=== PATIENT | male | born 1975 | race Caucasian/White ===

== ENCOUNTER 2018-11-30 19:40 | Emergency (ER) | payer OTHER ==
[~2018-11-30] VITALS: Ht 167.6 cm; Wt 79.4 kg
[2018-11-30 21:17] LABS: Alanine Aminotransfer (ALT/SGP 34 U/L (12-78); Albumin, Blood 4.1 g/dL (3.4-5.0); Albumin/Globulin Ratio 1.1 (0.8-1.8); Alk Phos 79 U/L (50-136); Anion Gap 8 mmol/L (6-16); Aspartate Aminotrans (AST/SGOT 38 U/L (12-37); Bilirubin, Total 2.6 mg/dL (0.1-1.0); Blood Urea Nitrogen 18 mg/dL (8-24); Bun/Creatinine Ratio 22.6 (12.0-20.0); CO2, Blood 25 mmol/L (21-32); CPK Creatine Kinase 663 U/L (39-308); Calcium, Blood 9.5 mg/dL (8.5-10.1); Chloride, Blood 110 mmol/L (98-108); Globulin, Blood 3.7 g/dL (2.2-4.0); Glomerular Filtration Rate >60 (60-); Glucose, Blood 85 mg/dL (70-99); Potassium, Blood 3.9 mmol/L (3.5-5.5); Sodium, Blood 143 mmol/L (136-145); Total Protein, Blood 7.8 g/dL (6.4-8.2)
[2018-11-30 21:22] LABS: Acetaminophen, Random <2.0 ug/mL (10.0-30.0)
[2018-11-30 21:38] LABS: Creatine Kinase MB 9.7 ng/mL (0.0-3.6); Creatine Kinase MB Index 1.5 (0.0-4.0)
== END 2018-11-30 22:35 | disposition home or self-care (01) ==
LOC: ER 19:40
PROVIDERS: Emergency Medicine
DX: F15.10 Other stimulant abuse, uncomplicated (principal); E80.6 Other disorders of bilirubin metabolism; F17.200 Nicotine dependence, unspecified, uncomplicated
CPT/HCPCS: 36415; 80053; 82550; 82553; 99284; G0480; J7030

== ENCOUNTER 2019-04-21 00:06 | Emergency (ER) | payer OTHER ==
[~2019-04-21] VITALS: Ht 185.4 cm; Wt 72.6 kg
[2019-05-02] MEDS ORDERED: CEFP200 PO (05:26)
== END 2019-04-21 03:32 | disposition home or self-care (01) ==
LOC: ER 00:06
DX: M79.671 Pain in right foot (principal); M79.672 Pain in left foot; G89.29 Other chronic pain; F15.10 Other stimulant abuse, uncomplicated; F17.200 Nicotine dependence, unspecified, uncomplicated
CPT/HCPCS: 99283; A9270-GY

== ENCOUNTER 2019-07-05 12:27 | Emergency (ER) | payer OTHER ==
[~2019-07-05] VITALS: Ht 195.6 cm; Wt 81.7 kg
[~2019-07-05 12:27] MED LIST: CEFP200 PO
[2019-07-05 15:00] LABS: BASOPHILS ABSOLUTE AUTO 0.24 K/mm3 (0.00-0.23); BASOPHILS PERCENT AUTO 1 % (0-2); EOSINOPHILS ABSOLUTE AUTO 4.35 K/mm3 (0.00-0.68); EOSINOPHILS PERCENT AUTO 26 % (0-6); Hematocrit 39.7 % (37.0-53.0); Hemoglobin 13.2 g/dL (13.5-17.5); IMMATURE GRAN ABSOLUTE AUTO 0.09 K/mm3 (0.00-0.10); IMMATURE GRAN PERCENT AUTO 1 % (0-1); LYMPHOCYTES ABSOLUTE AUTO 2.89 K/mm3 (0.84-5.20); LYMPHOCYTES PERCENT AUTO 17 % (21-46); MONOCYTES ABSOLUTE AUTO 1.47 K/mm3 (0.16-1.47); MONOCYTES PERCENT AUTO 9 % (4-13); Mean Corpuscular HGB 31.7 pg (26.0-34.0); Mean Corpuscular HGB Conc 33.2 g/dL (31.5-36.5); Mean Corpuscular Volume 95 fL (80-100); Mean Platelet Volume 9.6 fL (9.1-12.4); NEUTROPHILS ABSOLUTE AUTO 7.92 K/mm3 (1.96-9.15); NEUTROPHILS PERCENT AUTO 47 % (41-73); Platelet Count 333 K/mm3 (150-400); RDW Coefficient Variation 13.3 % (11.7-14.2); RDW Standard Deviation 47.4 fL (35.1-46.3); Red Blood Cell Count 4.16 M/mm3 (4.30-5.90); White Blood Cell Count 16.96 K/mm3 (4.00-11.30)
[2019-07-05] MEDS ORDERED: GABA300 PO (15:11)
[2019-07-05] MEDS ORDERED: NABU750 PO (15:12)
[2019-07-05 15:27] LABS: Alanine Aminotransfer (ALT/SGP 28 U/L (12-78); Albumin, Blood 3.6 g/dL (3.4-5.0); Albumin/Globulin Ratio 0.9 (0.8-1.8); Alk Phos 83 U/L (50-136); Anion Gap 4 mmol/L (6-16); Aspartate Aminotrans (AST/SGOT 17 U/L (12-37); Bilirubin, Total 0.8 mg/dL (0.1-1.0); Blood Urea Nitrogen 20 mg/dL (8-24); Bun/Creatinine Ratio 28.2 (12.0-20.0); CO2, Blood 29 mmol/L (21-32); Calcium, Blood 9.1 mg/dL (8.5-10.1); Chloride, Blood 105 mmol/L (98-108); Creatinine, Blood 0.71 mg/dL (0.60-1.20); Globulin, Blood 4.1 g/dL (2.2-4.0); Glomerular Filtration Rate >60 (60-); Glucose, Blood 79 mg/dL (70-99); Potassium, Blood 3.7 mmol/L (3.5-5.5); Sodium, Blood 138 mmol/L (136-145); Total Protein, Blood 7.7 g/dL (6.4-8.2)
[2019-07-05] MEDS ORDERED: CEPH500 PO (16:27)
[2019-07-05] MEDS ORDERED: Zithromax250 MG PO (16:27)
== END 2019-07-05 16:41 | disposition home or self-care (01) ==
LOC: ER 12:27
PROVIDERS: Emergency Medicine
DX: J18.9 Pneumonia, unspecified organism (principal); F17.210 Nicotine dependence, cigarettes, uncomplicated
CPT/HCPCS: 36415; 71046; 80053; 83605; 85025; 96365; 99284-25; J0696

== ENCOUNTER 2020-10-23 18:34 | Emergency (ER) | payer OTHER ==
[~2020-10-23] VITALS: Ht 195.6 cm; Wt 81.2 kg
[~2020-10-23 18:34] MED LIST changes: +CEPH500 PO; +GABA300 PO; +NABU750 PO; +Zithromax250 MG PO
== END 2020-10-23 20:23 | disposition left against medical advice (07) ==
LOC: ER 18:34
DX: M79.672 Pain in left foot (principal); Z53.21 Procedure and treatment not carried out due to patient leaving prior to being seen by health care provider
CPT/HCPCS: 73610; 99283-25

== ENCOUNTER 2021-01-16 11:00 | Inpatient (IN) | payer OTHER ==
[~2021-01-16] VITALS: Ht 193 cm; Wt 72.9 kg
[2021-01-16 11:51] LABS: BASOPHILS ABSOLUTE AUTO 0.09 K/mm3 (0.00-0.23); BASOPHILS PERCENT AUTO 1 % (0-2); EOSINOPHILS ABSOLUTE AUTO 0.15 K/mm3 (0.00-0.68); EOSINOPHILS PERCENT AUTO 1 % (0-6); Hemoglobin 11.7 g/dL (13.5-17.5); IMMATURE GRAN ABSOLUTE AUTO 0.19 K/mm3 (0.00-0.10); IMMATURE GRAN PERCENT AUTO 1 % (0-1); LYMPHOCYTES ABSOLUTE AUTO 0.99 K/mm3 (0.84-5.20); LYMPHOCYTES PERCENT AUTO 6 % (21-46); MONOCYTES ABSOLUTE AUTO 1.65 K/mm3 (0.16-1.47); MONOCYTES PERCENT AUTO 10 % (4-13); Mean Corpuscular HGB 30.8 pg (26.0-34.0); Mean Corpuscular HGB Conc 33.4 g/dL (31.5-36.5); Mean Corpuscular Volume 92 fL (80-100); Mean Platelet Volume 9.8 fL (9.1-12.4); NEUTROPHILS ABSOLUTE AUTO 13.71 K/mm3 (1.96-9.15); NEUTROPHILS PERCENT AUTO 82 % (41-73); Platelet Count 267 K/mm3 (150-400); RDW Coefficient Variation 13.5 % (11.7-14.2); White Blood Cell Count 16.78 K/mm3 (4.00-11.30)
[2021-01-16 12:18] LABS: Alanine Aminotransfer (ALT/SGP 27 U/L (12-78); Albumin, Blood 2.9 g/dL (3.4-5.0); Albumin/Globulin Ratio 0.6 (0.8-1.8); Alk Phos 102 U/L (50-136); Anion Gap 6 mmol/L (6-16); Aspartate Aminotrans (AST/SGOT 15 U/L (12-37); Blood Urea Nitrogen 18 mg/dL (8-24); Bun/Creatinine Ratio 22.2 (12.0-20.0); CO2, Blood 28 mmol/L (21-32); Calcium, Blood 9.5 mg/dL (8.5-10.1); Chloride, Blood 102 mmol/L (98-108); Creatinine, Blood 0.81 mg/dL (0.60-1.20); Globulin, Blood 4.9 g/dL (2.2-4.0); Glomerular Filtration Rate >60 (60-); Glucose, Blood 113 mg/dL (70-99); Potassium, Blood 3.8 mmol/L (3.5-5.5); Sodium, Blood 136 mmol/L (136-145); Total Protein, Blood 7.8 g/dL (6.4-8.2); Troponin I 0.054 ng/mL (0.000-0.040)
--- NOTE | 2021-01-16 17:35 | NUR ---
PATIENT IS ALERT AND ORIENTED AND COOPERATIVE WITH CARE. ON RA. PATIENT CAN USE THE URINAL INDEPENDENTLY. AN ECHO WAS PERFORMED THIS AFTERNOON. NS RUNNING AT 125 ML/HR. NO C/O CP AT THIS TIME. WILL CONTINUE TO MONITOR
[2021-01-16 19:15] LABS: Adenovirus Not Detected (NOT DETECT); Bordetella pertussis Not Detected (NOT DETECT); Chlamydophila pneumoniae Not Detected (NOT DETECT); Coronavirus 229E Not Detected (NOT DETECT); Coronavirus HKU1 Not Detected (NOT DETECT); Coronavirus NL63 Not Detected (NOT DETECT); Coronavirus OC43 Not Detected (NOT DETECT); Human Metapneumovirus Not Detected (NOT DETECT); Human Rhinovirus/Enterovirus Not Detected (NOT DETECT); Influenza A/2009-H1 Not Detected (NOT DETECT); Influenza A/H1 Not Detected (NOT DETECT); Influenza A/H3 Not Detected (NOT DETECT); Influenza B Not Detected (NOT DETECT); Mycoplasma pneumoniae Not Detected (NOT DETECT); Parainfluenza Virus 1 Not Detected (NOT DETECT); Parainfluenza Virus 2 Not Detected (NOT DETECT); Parainfluenza Virus 3 Not Detected (NOT DETECT); Parainfluenza Virus 4 Not Detected (NOT DETECT); Respiratory Syncytial Virus Not Detected (NOT DETECT); SARS-Cov-2 (COVID-19), BioFire Not Detected (NOT DETECT)
[2021-01-17 05:22] LABS: Hematocrit 29.1 % (37.0-53.0); Hemoglobin 9.7 g/dL (13.5-17.5); Mean Corpuscular HGB 31.2 pg (26.0-34.0); Mean Corpuscular HGB Conc 33.3 g/dL (31.5-36.5); Mean Corpuscular Volume 94 fL (80-100); Mean Platelet Volume 10.4 fL (9.1-12.4); Platelet Count 241 K/mm3 (150-400); RDW Coefficient Variation 13.8 % (11.7-14.2); RDW Standard Deviation 47.5 fL (35.1-46.3); Red Blood Cell Count 3.11 M/mm3 (4.30-5.90)
[2021-01-17 05:51] LABS: BAND PERCENT MAN 2 % (0-8); BASOPHILS PERCENT MAN 0 % (0-2); EOSINOPHILS ABSOLUTE MAN 0.31 K/mm3 (0.00-0.68); EOSINOPHILS PERCENT MAN 3 % (0-6); LYMPHOCYTES ABSOLUTE MAN 1.45 K/mm3 (0.84-5.20); LYMPHOCYTES PERCENT MAN 14 % (21-46); MONOCYTES ABSOLUTE MAN 1.04 K/mm3 (0.16-1.47); MONOCYTES PERCENT MAN 10 % (4-13); NEUTROPHILS ABSOLUTE MAN 7.59 K/mm3 (1.96-9.15); SEG NEUTROPHILS PERCENT MAN 71 % (41-73); TOTAL CELLS COUNTED 100
[2021-01-17 06:06] LABS: Alanine Aminotransfer (ALT/SGP 31 U/L (12-78); Albumin, Blood 2.2 g/dL (3.4-5.0); Albumin/Globulin Ratio 0.5 (0.8-1.8); Alk Phos 83 U/L (50-136); Anion Gap 7 mmol/L (6-16); Aspartate Aminotrans (AST/SGOT 27 U/L (12-37); Bilirubin, Total 0.4 mg/dL (0.1-1.0); Blood Urea Nitrogen 15 mg/dL (8-24); Bun/Creatinine Ratio 20.8 (12.0-20.0); CO2, Blood 24 mmol/L (21-32); Calcium, Blood 8.3 mg/dL (8.5-10.1); Chloride, Blood 106 mmol/L (98-108); Creatinine, Blood 0.72 mg/dL (0.60-1.20); Globulin, Blood 4.1 g/dL (2.2-4.0); Glomerular Filtration Rate >60 (60-); Glucose, Blood 101 mg/dL (70-99); Magnesium, Blood 2.5 mg/dL (1.6-2.4); Potassium, Blood 3.7 mmol/L (3.5-5.5); Sodium, Blood 137 mmol/L (136-145); Total Protein, Blood 6.3 g/dL (6.4-8.2)
--- NOTE | 2021-01-17 06:28 | NUR ---
PATIENT IS ALERT AND ORIENTED X4. DENIES SOB OR ANY DISTRESS. PATIENT TROPONIN LEVELS REPORTED BY LAB INCREASED FROM 0.093 TO 0.510. MD ANTHONY NOTIFIED WITH NEW ORDER FOR ASPIRIN 81 PO AND ECHO DONE THIS MORNING.
--- NOTE | 2021-01-17 07:07 | NUR ---
PATIENT IS ALET AND ORIENTED. TROPONIN LEVEL THIS MORNING DOUBLED TO 1.12. PREVIOUS 0.51 DR ANTHONY AWARE, SOME NEW ORDERS IN PLACE.
--- NOTE | 2021-01-17 17:49 | NUR ---
SHIFT SUMMARY PATIENT IS ALERT AND ORIENTATED X4. PATIENTS TRIPONINS HAVE BEEN TRENDING UPWARDS TO 1.650. CARDIOLOGY HAS BEEN CONSULTED DR OCONNELL HAS BEEN NOTIFIED. PATIENT HAS BEEN PLACED ON HEPARIN DRIP AND PHARMACY IS MANAGING DOSING. PATIENT HAS BEEN HAVING INTERMEITTENT PAIN WITH MOVEMENT. PATIENT HAS NOT BEEN SHORT OF BREATH. VITAL SIGNS REVIEWED. WILL CONTINUE TO MONITOR UNTIL SHIFT CHANGE.
[2021-01-18 06:06] LABS: Hematocrit 29.6 % (37.0-53.0); Platelet Count 287 K/mm3 (150-400)
--- NOTE | 2021-01-18 06:44 | NUR ---
PATIENT IS ALERT AND ORIENTATED. PATIENT CONTINUES ON HEPARIN DRIP RUNNING. PATIENT RECEIVED A DOSE HEPARIN BOLUS ADJUSTMENT. PATIENT DENIES SOB, COMPLAIN OF PAIN TO HIS RIGHT UPPER QUANDRANT, PATIENT RECEIVED ULRAM 50MG EFFECT STILL PENDING. PATIENT IS INDEPENDENT WITH URINAL, EMPTIED 2025CC OF URINE LAST NIGHT. WILL CONTINUE TO MONITOR PATIENT.
--- NOTE | 2021-01-18 19:33 | NUR ---
Alert and oriented x3 , able to make needs known. C/O RIGHT UPPPER shoulder , tramadol was given and it was effective. One person assist with ALDS. USED urinal at bedside. Heparin DC this AM . Continue on ABO therapy for PNA, no adverse effect noted. Troponin was 1.35 this morning , trended down , market development manager and DR CAMPBELL notified. vital signs are stable. continue to monitor.
--- NOTE | 2021-01-19 04:37 | NUR ---
END OF SHIFT SUMMARY PT HEART SAID TO BE LOW PER TELE, PATIENT WAS DEEP ASLEEP IN NO OBVIOUS DISTRESS, CO CP NOTED. BUT JUST THIS MORNING WAS HURTING AND WAS GIVEN THE PAIN MED PER EMAR. WILL CONTINUE TO MONITOR PATIENT.
[2021-01-19 05:17] LABS: Hematocrit 29.1 % (37.0-53.0); Hemoglobin 9.7 g/dL (13.5-17.5); Mean Corpuscular HGB Conc 33.3 g/dL (31.5-36.5); Mean Corpuscular Volume 93 fL (80-100); Mean Platelet Volume 10.1 fL (9.1-12.4); Platelet Count 330 K/mm3 (150-400); RDW Standard Deviation 47.8 fL (35.1-46.3); Red Blood Cell Count 3.13 M/mm3 (4.30-5.90); White Blood Cell Count 12.66 K/mm3 (4.00-11.30)
[2021-01-19 05:41] LABS: Anion Gap 4 mmol/L (6-16); Blood Urea Nitrogen 9 mg/dL (8-24); Bun/Creatinine Ratio 15.4 (12.0-20.0); CO2, Blood 30 mmol/L (21-32); Calcium, Blood 9.4 mg/dL (8.5-10.1); Chloride, Blood 105 mmol/L (98-108); Creatinine, Blood 0.58 mg/dL (0.60-1.20); Ferritin, Serum 265 ng/mL (26-388); Glomerular Filtration Rate >60 (60-); Glucose, Blood 110 mg/dL (70-99); Iron Serum 29 ug/dL (65-175); Percent Saturation 11.9 % (20.0-50.0); Sodium, Blood 139 mmol/L (136-145); Total Iron Binding Capacity 244 ug/dL (250-450)
[2021-01-19] MEDS ORDERED: ASPI81CH PO (15:31)
[2021-01-19] MEDS ORDERED: DOXY100 PO (15:31)
[2021-01-19] MEDS ORDERED: TRAM50 PO (15:31)
--- NOTE | 2021-01-19 16:56 | NUR ---
Alert and oriented x3 , able to make needs known. C/O left upper shoulder pain, tramadol 50 mg po was given , it was effective. Vital signs are stable. Pt discharge home in a stable and understood discharge instruction.
[2021-01-21] MEDS ORDERED: Vibramycin100 MG PO (22:58)
== END 2021-01-19 16:52 | disposition home or self-care (01) | DRG 195 ==
LOC: ER 11:00 → MEDS 14:47 → ENPENDDIS 01-19 13:53 → MEDS 01-19 16:52
PROVIDERS: Emergency Medicine; Internal Medicine; Nurse Practitioner Acute Care; ADMIT Hospitalist
DX: J18.9 Pneumonia, unspecified organism (principal); R77.8 Other specified abnormalities of plasma proteins; F15.10 Other stimulant abuse, uncomplicated; Z20.822 Contact with and (suspected) exposure to COVID-19; D63.8 Anemia in other chronic diseases classified elsewhere; F17.210 Nicotine dependence, cigarettes, uncomplicated; Z59.0 Homelessness
CPT/HCPCS: 0202U; 36415; 71045; 71260; 80048; 80053; 82728; 83540; 83550; 83690; 83735; 84145; 84484; 85014; 85018; 85025; 85027; 85049; 85730; 87040; 87449; 93005; 93010; 93306; 96365; 99285-25; A9270; J0696; J1644; J1956; J7030; Q9967

== ENCOUNTER 2021-02-19 21:33 | Emergency (ER) | payer OTHER ==
[~2021-02-19] VITALS: Ht 195.6 cm; Wt 81.7 kg
[~2021-02-19 21:33] MED LIST changes: +ASPI81CH PO; +DOXY100 PO; +TRAM50 PO; +Vibramycin100 MG PO
== END 2021-02-19 22:50 | disposition home or self-care (01) ==
LOC: ER 21:33
DX: S62.306A Unspecified fracture of fifth metacarpal bone, right hand, initial encounter for closed fracture (principal); S62.616A Displaced fracture of proximal phalanx of right little finger, initial encounter for closed fracture; Z87.891 Personal history of nicotine dependence; X58.XXXA Exposure to other specified factors, initial encounter
CPT/HCPCS: 29125; 73130; 99283-25

== ENCOUNTER 2021-02-20 15:15 | Emergency (ER) | payer OTHER | END 2021-02-20 16:00 | disposition left against medical advice (07) | LOC: ER 15:15 | DX: Z53.21 Procedure and treatment not carried out due to patient leaving prior to being seen by health care provider (principal) ==

== ENCOUNTER 2021-04-23 19:44 | Inpatient (IN) | payer OTHER ==
[~2021-04-23] VITALS: Ht 193 cm; Wt 74.5 kg
[2021-04-23 20:18] LABS: BASOPHILS ABSOLUTE AUTO 0.07 K/mm3 (0.00-0.23); BASOPHILS PERCENT AUTO 1 % (0-2); EOSINOPHILS ABSOLUTE AUTO 0.11 K/mm3 (0.00-0.68); EOSINOPHILS PERCENT AUTO 1 % (0-6); Hematocrit 33.5 % (37.0-53.0); Hemoglobin 11.2 g/dL (13.5-17.5); IMMATURE GRAN ABSOLUTE AUTO 0.09 K/mm3 (0.00-0.10); IMMATURE GRAN PERCENT AUTO 1 % (0-1); LYMPHOCYTES ABSOLUTE AUTO 0.45 K/mm3 (0.84-5.20); LYMPHOCYTES PERCENT AUTO 3 % (21-46); MONOCYTES ABSOLUTE AUTO 0.22 K/mm3 (0.16-1.47); MONOCYTES PERCENT AUTO 2 % (4-13); Mean Corpuscular HGB 30.6 pg (26.0-34.0); Mean Corpuscular HGB Conc 33.4 g/dL (31.5-36.5); Mean Corpuscular Volume 92 fL (80-100); Mean Platelet Volume 9.6 fL (9.1-12.4); NEUTROPHILS ABSOLUTE AUTO 13.69 K/mm3 (1.96-9.15); NEUTROPHILS PERCENT AUTO 94 % (41-73); Platelet Count 249 K/mm3 (150-400); RDW Coefficient Variation 13.4 % (11.7-14.2); RDW Standard Deviation 45.7 fL (35.1-46.3); Red Blood Cell Count 3.66 M/mm3 (4.30-5.90); White Blood Cell Count 14.63 K/mm3 (4.00-11.30)
[2021-04-23 20:36] LABS: Alanine Aminotransfer (ALT/SGP 30 U/L (12-78); Albumin, Blood 2.9 g/dL (3.4-5.0); Albumin/Globulin Ratio 0.7 (0.8-1.8); Alk Phos 104 U/L (50-136); Anion Gap 8 mmol/L (6-16); Aspartate Aminotrans (AST/SGOT 19 U/L (12-37); Bilirubin, Total 0.5 mg/dL (0.1-1.0); Blood Urea Nitrogen 15 mg/dL (8-24); Bun/Creatinine Ratio 18.2 (12.0-20.0); CO2, Blood 21 mmol/L (21-32); Calcium, Blood 9.1 mg/dL (8.5-10.1); Chloride, Blood 110 mmol/L (98-108); Creatinine, Blood 0.83 mg/dL (0.60-1.20); Glomerular Filtration Rate >60 (60-); Glucose, Blood 109 mg/dL (70-99); Potassium, Blood 3.1 mmol/L (3.5-5.5); Sodium, Blood 139 mmol/L (136-145); Total Protein, Blood 6.9 g/dL (6.4-8.2)
[2021-04-23 22:00] LABS: Influenza A, PCR NEGATIVE (NEGATIVE); Influenza B, PCR NEGATIVE (NEGATIVE); Resp Syncytial Virus, PCR NEGATIVE (NEGATIVE); SARS-Cov-2 (COVID-19) PCR, MMC NEGATIVE (NEGATIVE)
[2021-04-24 05:38] LABS: BASOPHILS PERCENT AUTO 1 % (0-2); EOSINOPHILS ABSOLUTE AUTO 0.25 K/mm3 (0.00-0.68); EOSINOPHILS PERCENT AUTO 2 % (0-6); Hematocrit 32.8 % (37.0-53.0); Hemoglobin 10.8 g/dL (13.5-17.5); IMMATURE GRAN ABSOLUTE AUTO 0.03 K/mm3 (0.00-0.10); IMMATURE GRAN PERCENT AUTO 0 % (0-1); LYMPHOCYTES ABSOLUTE AUTO 1.18 K/mm3 (0.84-5.20); LYMPHOCYTES PERCENT AUTO 11 % (21-46); MONOCYTES ABSOLUTE AUTO 0.83 K/mm3 (0.16-1.47); MONOCYTES PERCENT AUTO 8 % (4-13); Mean Corpuscular HGB 30.3 pg (26.0-34.0); Mean Corpuscular HGB Conc 32.9 g/dL (31.5-36.5); Mean Corpuscular Volume 92 fL (80-100); Mean Platelet Volume 9.7 fL (9.1-12.4); NEUTROPHILS ABSOLUTE AUTO 8.18 K/mm3 (1.96-9.15); NEUTROPHILS PERCENT AUTO 77 % (41-73); Platelet Count 229 K/mm3 (150-400); RDW Coefficient Variation 13.6 % (11.7-14.2); RDW Standard Deviation 46.5 fL (35.1-46.3); Red Blood Cell Count 3.56 M/mm3 (4.30-5.90); White Blood Cell Count 10.57 K/mm3 (4.00-11.30)
[2021-04-24 06:33] LABS: Alanine Aminotransfer (ALT/SGP 28 U/L (12-78); Albumin, Blood 2.6 g/dL (3.4-5.0); Albumin/Globulin Ratio 0.8 (0.8-1.8); Alk Phos 84 U/L (50-136); Anion Gap 7 mmol/L (6-16); Aspartate Aminotrans (AST/SGOT 17 U/L (12-37); Bilirubin, Total 0.8 mg/dL (0.1-1.0); Blood Urea Nitrogen 9 mg/dL (8-24); Bun/Creatinine Ratio 13.7 (12.0-20.0); CO2, Blood 22 mmol/L (21-32); Calcium, Blood 8.5 mg/dL (8.5-10.1); Chloride, Blood 113 mmol/L (98-108); Creatinine, Blood 0.66 mg/dL (0.60-1.20); Globulin, Blood 3.4 g/dL (2.2-4.0); Glomerular Filtration Rate >60 (60-); Glucose, Blood 104 mg/dL (70-99); Potassium, Blood 3.7 mmol/L (3.5-5.5); Sodium, Blood 142 mmol/L (136-145)
[2021-04-24] MEDS ORDERED: IBUP800 PO (15:50)
--- NOTE | 2021-04-24 16:10 | NUR ---
CALL PLACED TO PHARMACY TO VERIFY THIS PT VANCO FOSE AND THROUGH. SPOKE WITH GURPREET WHO STATES THAT IT IS OKAY TO ADMINISTER 1400 DOSE OF VANCO.
--- NOTE | 2021-04-24 16:21 | NUR ---
PT ARRICVES ON UNIT AROUND 1525. A/O X4. VITALS WNL. TELE BOX/RATE/RHYTHM COMFIRMED BY SOFTBALL CORE MOLDER. PT IS SR 69 PER SOFTBALL CORE MOLDER. PT AMBULATES TO THE BATHROOM. PT REPORTS CHRONIC, CONSTANT BACK PAIN IN RIGHT SHOULDER BLADE. PT DENIES N/T OR CHEST PAIN. PT IS IN BED, WATCHING TV AND TALKING TO STAFF.
--- NOTE | 2021-04-25 04:07 | NUR ---
SHIFT SUMMARY PATIENT HAD NO ACUTE CHANGES OBSERVED. AXOX 4 AND INDEPENDENT IN ROOM. PIV REMAINS INTACT. IV ABX INFUSED. DENIES CHEST PAIN, SOB, AND N/V. REPORTED COUGH AND SHOULDER PAIN. TYLENOL 650 MG AND GUAIFENESIN GIVEN PER EMAR. VSS/AFEBRILE. COOPERATIVE WITH CARE. CALL LIGHT IN REACH. BED IN LOWEST POSITION. WILL CONTINUE TO MONITOR UNTIL DAY SHIFT NURSE ASSUMES CARE.
[2021-04-25 05:22] LABS: BASOPHILS ABSOLUTE AUTO 0.03 K/mm3 (0.00-0.23); BASOPHILS PERCENT AUTO 1 % (0-2); EOSINOPHILS ABSOLUTE AUTO 0.29 K/mm3 (0.00-0.68); EOSINOPHILS PERCENT AUTO 6 % (0-6); Hematocrit 32.9 % (37.0-53.0); IMMATURE GRAN ABSOLUTE AUTO 0.02 K/mm3 (0.00-0.10); IMMATURE GRAN PERCENT AUTO 0 % (0-1); LYMPHOCYTES ABSOLUTE AUTO 0.47 K/mm3 (0.84-5.20); LYMPHOCYTES PERCENT AUTO 10 % (21-46); MONOCYTES ABSOLUTE AUTO 0.92 K/mm3 (0.16-1.47); MONOCYTES PERCENT AUTO 20 % (4-13); Mean Corpuscular HGB 30.4 pg (26.0-34.0); Mean Corpuscular HGB Conc 33.4 g/dL (31.5-36.5); Mean Corpuscular Volume 91 fL (80-100); Mean Platelet Volume 9.9 fL (9.1-12.4); NEUTROPHILS ABSOLUTE AUTO 2.91 K/mm3 (1.96-9.15); NEUTROPHILS PERCENT AUTO 63 % (41-73); Platelet Count 195 K/mm3 (150-400); RDW Coefficient Variation 13.9 % (11.7-14.2); RDW Standard Deviation 46.6 fL (35.1-46.3); Red Blood Cell Count 3.62 M/mm3 (4.30-5.90); White Blood Cell Count 4.64 K/mm3 (4.00-11.30)
[2021-04-25 06:35] LABS: Albumin, Blood 2.7 g/dL (3.4-5.0); Anion Gap 6 mmol/L (6-16); Blood Urea Nitrogen 9 mg/dL (8-24); Bun/Creatinine Ratio 14.3 (12.0-20.0); CO2, Blood 26 mmol/L (21-32); Calcium, Blood 8.9 mg/dL (8.5-10.1); Chloride, Blood 108 mmol/L (98-108); Creatinine, Blood 0.63 mg/dL (0.60-1.20); Glomerular Filtration Rate >60 (60-); Glucose, Blood 109 mg/dL (70-99); Phosphorus, Blood 3.4 mg/dL (2.5-4.9); Potassium, Blood 3.9 mmol/L (3.5-5.5); Sodium, Blood 140 mmol/L (136-145); Vancomycin, Trough 12.6 ug/mL (5.0-10.0)
--- NOTE | 2021-04-25 07:51 | NUR ---
9829 RECEIVED CALL FROM Note ABOUT THIS PT HR 47. ASSESSES PT. PT C/O OF RIGHT SHOULDER PAIN AND STATED THIS IS CHRONIC PAIN FOR ABOUT A YEAR. NO OTHER SYMPTOMS REPORTED. PT ASKED WHEN BREAKFAST IS COMIMG. WILL TREAT PAIN AND CONTINUE TO MONITOR
--- NOTE | 2021-04-25 08:06 | NUR ---
CALL PLACED TO PHARMACY TO VERIFY 0600 VANCO DOSE. SPOKE WITH PHARMACIST-LOUIE WHO STATES THERE IS NO CHANGE AND IT IS OKAY TO ADMINISTER 0600 VANCO DOSE FOR THIS PATIENT. WILL ADMINISTER
--- NOTE | 2021-04-25 17:58 | NUR ---
1758- PER BLADDER TIER PT IS SINUS ANDERSON HR 58. PT A/O X4. AMBULATES WELL TO BATHROOM/ROOM INDEPENDENTLY. TREATED PAIN AND COUGH WITH PRN MEDS. PT GOT AGITATED AROUND 1500 AND ASKED TO REMOVE IV SO HE CAN LEAVE BECAUSE HE CANNOT GET IN TOUCH WITH HIS FRIEND WHO IS WATCHING HIS DOG. EDUCATE PT ON THE RISKS OF LEAVING AMA CONSIDERING HIS DIAGNOSIS/COMMUNITY ACQ PNEUMONIA. PT VERBALIZED UNDERSTANDING AND DECIDED HE WILL CONTINUE GETTING CARE/WILL NOT LEAVE.NO ACUTE CHANGES. WILL CONTINUE TO MONITOR
--- NOTE | 2021-04-26 05:11 | NUR ---
SHIFT SUMMARY NO ACUTE CHANGES TO REPORT THIS SHIFT. PT HAS RESTED MOST OF THE NIGHT, MEDICATED FOR R SHOULDER PAIN X1 WITH AFFECT. PT HAS BEEN INDEPENDENT IN THE ROOM AND MAKES NEEDS KNOWN. APPETITE GOOD. VITALS STABLE. RESTFUL NIGHT. BED IN LOWEST POSITION, CALL LIGHT WIHTIN REACH.
[2021-04-26] MEDS ORDERED: GUAI600T33 PO (11:43)
[2021-04-26] MEDS ORDERED: ACET325 PO (11:43)
[2021-04-26] MEDS ORDERED: LEVO750 PO (11:45)
[2021-04-26] MEDS ORDERED: VISBIOME 112.51 EACH PO (11:46)
--- NOTE | 2021-04-26 14:14 | NUR ---
DISCHARGE NOTE: PT EDUCATED ON DISCHARGE INSTRUCTIONS. SCRIPTS FAXED TO [facility]. PT INFORMED NEXT DOSE OF LEVAQUIN DUE TOMORROW AT NOON. PT REPORTED HE NO LONGER HAS A PCP. OFFERED PACKETS ON [facility] TO ESTABLISH CARE WITH. PT REPORTED HE WOULD TRY [email or web address]. PROVIDED PT WITH PACKET. ENCOOURAGED PT IF HE BEGAN HAVING FEVER, CHILLS, WORSENING SYMPTOMS TO GO TO [facility]ENT [facility]. PT VU. PT PACKED UP HIS BELONGINGS AND PT ESCORTED OUT BY [facility].
== END 2021-04-26 14:14 | disposition home or self-care (01) | DRG 871 ==
LOC: ER 19:44 → ERHOLD 23:11 → MEDS 04-24 15:14
PROVIDERS: Emergency Medicine; Family Medicine; Pharmacist; Student in an Organized Health Care Education/Training Program; ADMIT Internal Medicine
DX: A41.9 Sepsis, unspecified organism (principal); J18.9 Pneumonia, unspecified organism; J69.0 Pneumonitis due to inhalation of food and vomit; J21.9 Acute bronchiolitis, unspecified; Z20.822 Contact with and (suspected) exposure to COVID-19; F17.210 Nicotine dependence, cigarettes, uncomplicated; E87.6 Hypokalemia; R07.81 Pleurodynia; D63.8 Anemia in other chronic diseases classified elsewhere; F15.10 Other stimulant abuse, uncomplicated; F12.10 Cannabis abuse, uncomplicated; Z71.6 Tobacco abuse counseling; Z71.51 Drug abuse counseling and surveillance of drug abuser; Z88.0 Allergy status to penicillin; Z79.82 Long term (current) use of aspirin
CPT/HCPCS: 0241U; 36415; 71046; 71260; 80053; 80069; 80202; 83605; 84145; 84484; 85025; 87040; 93005; 93010; 96365-59; 96375-59; 99285-25; A9270; J1650; J1956; J2185; J3370; J3480; J7030; J7050; Q9967

== ENCOUNTER → 2021-12-25 | Outpatient (CLI) | payer OTHER ==
[~2021-12-25] MED LIST changes: +ACET325 PO; +GUAI600T33 PO; +IBUP800 PO; +LEVO750 PO; +VISBIOME 112.51 EACH PO
[2021-12-27 03:37] LABS: CHLAMYDIA TRACHOMATIS, NAA Negative (Negative)
== END | disposition home or self-care (01) ==
LOC: LAB 10:00 → LAB SHORT 10:00
PROVIDERS: Family Medicine
DX: Z11.3 Encounter for screening for infections with a predominantly sexual mode of transmission (principal)
CPT/HCPCS: 87491; 87591

== ENCOUNTER 2022-03-09 12:33 | Emergency (ER) | payer OTHER ==
[~2022-03-09] VITALS: Ht 193 cm; Wt 77.1 kg
[2022-03-09] MEDS ORDERED: Prednisone20 MG PO (13:40)
== END 2022-03-09 14:34 | disposition home or self-care (01) ==
LOC: ER 12:33
DX: L25.9 Unspecified contact dermatitis, unspecified cause (principal); F17.210 Nicotine dependence, cigarettes, uncomplicated; Z79.52 Long term (current) use of systemic steroids; Z88.0 Allergy status to penicillin
CPT/HCPCS: J7512

== ENCOUNTER 2022-11-10 08:57 | Emergency (ER) | payer OTHER ==
[~2022-11-10] VITALS: Ht 193 cm; Wt 72.6 kg
[~2022-11-10 08:57] MED LIST changes: +Prednisone20 MG PO
[2022-11-10 09:21] VITALS: BP 109/82
== END 2022-11-10 12:00 | disposition home or self-care (01) ==
LOC: ER 08:57
DX: M25.561 Pain in right knee (principal); Z88.0 Allergy status to penicillin; Z87.891 Personal history of nicotine dependence; X50.1XXA Overexertion from prolonged static or awkward postures, initial encounter
CPT/HCPCS: 73562-RT; J1885

== ENCOUNTER 2023-01-13 23:17 | Emergency (ER) | payer OTHER ==
[~2023-01-13] VITALS: Ht 195.6 cm; Wt 81.7 kg
[2023-01-13 23:50] VITALS: BP 120/85
[2023-01-13] MEDS ORDERED: GABA100 PO (23:54)
[2023-01-13] MEDS ORDERED: ALBU90OI INH (23:55)
== END 2023-01-14 00:31 | disposition home or self-care (01) ==
LOC: ER 23:17
DX: T16.2XXA Foreign body in left ear, initial encounter (principal)
CPT/HCPCS: 69200; 99283-25

== ENCOUNTER 2024-01-20 20:15 | Emergency (ER) | payer OTHER ==
[~2024-01-20] VITALS: Ht 195.6 cm; Wt 83.9 kg
[~2024-01-20 20:15] MED LIST changes: +ALBU90OI INH; +GABA100 PO
[2024-01-20 20:20] VITALS: BP 113/69
[2024-01-20] MEDS ORDERED: Ketorolac Tromethamine 30mg Vial IM ONE (21:15)
== END 2024-01-20 23:08 | disposition home or self-care (01) ==
LOC: ER 20:15
DX: S93.602A Unspecified sprain of left foot, initial encounter (principal); J06.9 Acute upper respiratory infection, unspecified; F17.200 Nicotine dependence, unspecified, uncomplicated; X58.XXXA Exposure to other specified factors, initial encounter; Z88.0 Allergy status to penicillin
CPT/HCPCS: 71046; 73630; 96372; 99283-25; J1885

== ENCOUNTER 2024-05-30 02:28 | Emergency (ER) | payer OTHER ==
[~2024-05-30] VITALS: Ht 193 cm; Wt 79.4 kg
[2024-05-30 03:32] LABS: BASOPHILS ABSOLUTE AUTO 0.09 K/mm3 (0.00-0.23); BASOPHILS PERCENT AUTO 1 % (0-2); EOSINOPHILS PERCENT AUTO 8 % (0-6); Hematocrit 37.6 % (37.0-53.0); Hemoglobin 12.9 g/dL (13.5-17.5); IMMATURE GRAN ABSOLUTE AUTO 0.03 K/mm3 (0.00-0.10); IMMATURE GRAN PERCENT AUTO 0 % (0-1); LYMPHOCYTES ABSOLUTE AUTO 2.18 K/mm3 (0.84-5.20); LYMPHOCYTES PERCENT AUTO 23 % (21-46); MONOCYTES ABSOLUTE AUTO 0.78 K/mm3 (0.16-1.47); MONOCYTES PERCENT AUTO 8 % (4-13); Mean Corpuscular HGB 31.4 pg (26.0-34.0); Mean Corpuscular HGB Conc 34.3 g/dL (31.5-36.5); Mean Corpuscular Volume 92 fL (80-100); Mean Platelet Volume 9.5 fL (9.1-12.4); NEUTROPHILS ABSOLUTE AUTO 5.63 K/mm3 (1.96-9.15); NEUTROPHILS PERCENT AUTO 59 % (41-73); Platelet Count 307 K/mm3 (150-400); RDW Coefficient Variation 13.4 % (11.7-14.2); RDW Standard Deviation 45.3 fL (35.1-46.3); Red Blood Cell Count 4.11 M/mm3 (4.30-5.90); White Blood Cell Count 9.51 K/mm3 (4.00-11.30)
[2024-05-30 03:45] LABS: Albumin, Blood 3.9 g/dL (3.4-5.0); Calcium, Blood 9.3 mg/dL (8.5-10.1); Creatinine, Blood 0.75 mg/dL (0.60-1.20); Globulin, Blood 4.1 g/dL (2.2-4.0); Potassium, Blood 3.2 mmol/L (3.5-5.5)
[2024-05-30 05:00] VITALS: BP 134/90
== END 2024-05-30 05:07 | disposition home or self-care (01) ==
LOC: ER 02:28
PROVIDERS: Emergency Medicine
DX: R07.89 Other chest pain (principal); F15.10 Other stimulant abuse, uncomplicated; F14.10 Cocaine abuse, uncomplicated; J45.909 Unspecified asthma, uncomplicated; Z87.891 Personal history of nicotine dependence; Z88.0 Allergy status to penicillin
CPT/HCPCS: 71045; 80053; 84484; 85025; 93005; 93010; 99285-25